=== PATIENT | male | born 1985 | race Caucasian/White ===

== ENCOUNTER 2016-12-26 07:11 | Emergency (ER) | payer OTHER ==
[~2016-12-26] VITALS: Ht 175.3 cm; Wt 102.1 kg
[2016-12-26] MEDS ORDERED: PREDNISONE50 MG PO (12:12)
[2016-12-26] MEDS ORDERED: AMOXICILLIN500 MG PO (12:12)
[2016-12-26 12:29] VITALS: BP 141/96
== END 2016-12-26 12:30 | disposition home or self-care (01) ==
LOC: EME 07:11
DX: J02.9 Acute pharyngitis, unspecified (principal); K12.2 Cellulitis and abscess of mouth; R06.02 Shortness of breath
CPT/HCPCS: 87651 90; 99281; 99284; J1200; J2930; S0028